=== PATIENT | female | born 1965 | race Caucasian/White ===

== ENCOUNTER → 2017-01-28 | Outpatient (CLI) | payer BC ==
--- NOTE | 2017-01-28 23:24 | MR ---
EXAMINATION TYPE: MR brain wo/w con DATE OF EXAM: 01/28/2017 COMPARISON: NONE HISTORY: HX of Seizures TECHNIQUE: Multiplanar, multisequence images of the brain and brainstem is performed without and with IV contras t, utilizing 10 mL intravenous MultiHance . FINDINGS: The ventricles and sulci appear fairly normal for age. There is no mass effect nor midline shift. The re is no sign of intracranial hemorrhage. There is normal flow void in the anterior middle and warehouse traffic supervisor ior cerebral arteries. Brainstem is intact. Corpus callosum appears normal. Sella turcica appears nor mal. I see no pathologic enhancement. IMPRESSION: Normal MR scan of the brain.
== END | disposition home or self-care (01) ==
LOC: RADMRIMAIN 20:18
PROVIDERS: ATTEND Psychiatry & Neurology Neurology
DX: G40.209 Localization-related (focal) (partial) symptomatic epilepsy and epileptic syndromes with complex partial seizures, not intractable, without status epilepticus (principal)
CPT/HCPCS: 70553; A9577

== ENCOUNTER → 2018-03-16 | Outpatient (CLI) | payer OTHER ==
[2018-03-16 14:28] LABS: Anisocytosis Slight; Basophils % (A) 1 %; Eosinophils # (A) 0.3 k/uL (0-0.7); Eosinophils % (A) 5 %; HCT 36.2 % (34.0-46.0); HGB 10.5 gm/dL (11.4-16.0); Hypochromasia Marked; Lymphocytes # (A) 1.8 k/uL (1.0-4.8); Lymphocytes % (A) 35 %; MCH 23.2 pg (25.0-35.0); MCHC 29.1 g/dL (31.0-37.0); MCV 79.6 fL (80.0-100.0); Mean Platelet Volume 6.1; Microcytosis Slight; Monocytes # (A) 0.3 k/uL (0-1.0); Monocytes % (A) 5 %; Neutrophils # (A) 2.7 k/uL (1.3-7.7); Neutrophils % (A) 52 %; Platelet Count 681 k/uL (150-450); RBC 4.55 m/uL (3.80-5.40); RDW 19.4 % (11.5-15.5); WBC 5.1 k/uL (3.8-10.6)
[2018-03-16 14:41] LABS: Anion Gap 10 mmol/L; Blood Urea Nitrogen 21 mg/dL (7-17); Calcium 9.8 mg/dL (8.4-10.2); Carbon Dioxide 28 mmol/L (22-30); Chloride 104 mmol/L (98-107); Glucose 89 mg/dL (74-99); Potassium 4.3 mmol/L (3.5-5.1); Sodium 142 mmol/L (137-145)
== END | disposition home or self-care (01) ==
LOC: LABWHC1 13:57
PROVIDERS: ATTEND Urology
DX: Z01.812 Encounter for preprocedural laboratory examination (principal); Z79.899 Other long term (current) drug therapy; N20.1 Calculus of ureter
CPT/HCPCS: 36415; 80048; 85025

== ENCOUNTER 2018-03-18 09:37 | Day surgery (SDC) | payer OTHER ==
--- NOTE | 2018-03-15 21:00 | P.GSHP ---
History of Present Illness H&P Date: 03/15/18 Chief Complaint: Left flank pain The patient is a 53-year-old white female recently hospitalized with acute left pyelonephritis, complicated by a 5 mm left distal ureteral calculus. She underwent stent placement, and has been treated with antibiotics. The urine culture showed Klebsiella, and she is currently being treated with Ceftin. She has no prior history of urolithiasis. - Constitutional Constitutional: Reports chills, Reports fever - Gastrointestinal Gastrointestinal: Reports nausea, Reports vomiting - Genitourinary (Female) Genitourinary: Reports dysuria, Reports hematuria, Reports kidney stones Past Medical History Past Medical History: Cancer, Seizure Disorder Additional Past Medical History / Comment(s): Gout, cervical cancer, partial gastrectomy (ever since then has had problems holding food down), hard time swallowing pills likes liquid medication, recently (last week) lost insurance stopped taking dilantin and now taking keppra, anemia, kidney issues (unable to urinate for 3 days), chemo and radiation cervical cancer 2009 History of Any Multi-Drug Resistant Organisms: None Reported Past Surgical History: No Surgical Hx Reported Additional Past Surgical History / Comment(s): removal of large portion of stomach Past Anesthesia/Blood Transfusion Reactions: No Reported Reaction Past Psychological History: No Psychological Hx Reported Smoking Status: Never smoker Past Alcohol Use History: None Reported Past Drug Use History: None Reported - Past Family History Mother Family Medical History: Chest Pain / Angina Medications and Allergies Home Medications Medication Instructions Recorded Confirmed Type Zolpidem [Ambien] 10 mg PO HS PRN 11/05/17 11/05/17 History levETIRAcetam [Keppra] 750 mg PO BID 11/05/17 11/05/17 History Allergies Allergy/AdvReac Type Severity Reaction Status Date / Time metronidazole [From Flagyl] Allergy Rash/Hives Verified 11/05/17 07:58 Surgical - Exam - General well developed, well nourished, no distress - Neck no masses, trachea midline - Respiratory normal respiratory effort - Abdomen Abdomen: soft, tender (Mild left-sided tenderness), no masses, no guarding, no rigid, no rebound, no distended - Psychiatric oriented to time, oriented to person, oriented to place, speech is normal, memory intact Results - Imaging CT scan - abdomen: report reviewed, image reviewed Assessment and Plan (1) Calculus of ureter Status: Acute Code(s): N20.1 - CALCULUS OF URETER SNOMED Code(s): 98558046 Plan: I have discussed the diagnosis of ureteral calculus with the patient in great detail. I explained to the patient that after appropriate antibiotic therapy, ureteroscopic calculus removal can be safely performed. This can be done via stone basketing or laser lithotripsy. I explained the chances of ureteral perforation as well as the possibility that the calculus could not be retrieved. I discussed other risks of ureteroscopy, such as bleeding and infection. I explained the possibility of stent replacement. The patient expressed an understanding of the procedure and risks. Following a lengthy discussion, as a result of shared decision making, the patient has elected to proceed with cystoscopy, left ureteral stent removal, left ureteroscopy with laser lithotripsy and/or stone basketing.
[2018-03-17 09:30] VITALS: BMI 21.3
[~2018-03-18 09:37] MED LIST: DEXAMETHASONE SOD PHOSPHATE 10 MG/ML 1 ML VIAL IV ONE; LACTATED RINGERS 1,000 ML IV SCH; ONDANSETRON 4 MG/2 ML VIAL IVP ONE; ceFAZolin IN SWFI 2 GM/20 ML SYRINGE IVP ONE
--- NOTE | 2018-03-18 10:19 | XR ---
EXAMINATION TYPE: XR KUB DATE OF EXAM: 03/18/2018 HISTORY: Pain Comparison: None.Single KUB is submitted for interpretation. Findings: Right renal calculi: None Visualized. Limited by overlying bowel content. Right ureteral calculi: None Visualized. Left renal calculi: None Visualized. Surgical clips and rings of sutures overlying the left kidney. Left ureteral calculi: Double pigtail left ureteral stent is in place. Pelvic calcifications: None Visualized. Bowel gas pattern is unremarkable. No free air. No mass effects. IMPRESSION: 1. Left-sided ureteral stent is in place. No definite nephrolithiasis appreciated at this time.
[2018-03-18] MEDS ORDERED: LIDOCAINE 1% 20 ML VIAL (10MG/ML) FOR IV START INTRADERMA ONE (10:34)
[2018-03-18] MEDS ORDERED: LIDOCAINE 1% INJ 10MG/ML (20 ML MDV) ONE (11:32)
[2018-03-18] MEDS ORDERED: fentaNYL (PF) 50 MCG/ML 2 ML AMP ONE (11:32)
[2018-03-18] MEDS ORDERED: SUCCINYLCHOLINE CHLORIDE 100 MG/5 ML SYR IV ONE (11:32)
[2018-03-18] MEDS ORDERED: PROPOFOL 10 MG/ML 20 ML VIAL IV ONE (11:32)
[2018-03-18] MEDS ORDERED: ePHEDrine SULFATE/0.9% NACL/PF 50 MG/5 ML SYRINGE IV ONE (11:32)
[2018-03-18] MEDS ORDERED: MIDAZOLAM 2 MG/2 ML VIAL ONE (11:32)
[2018-03-18] MEDS ORDERED: PHENYLEPHRINE-0.9% NACL SYG 1 MG/10 ML SYRINGE ONE (11:32)
--- NOTE | 2018-03-18 12:34 | P.OP ---
Date of Procedure: 03/18/18 Preoperative Diagnosis: Left Ureteral Calculus Postoperative Diagnosis: Same Procedure(s) Performed: cystoscopy, left ureteral stent removal, left ureteroscopy with Holmium laser lithotripsy Anesthesia: BRYAN Surgeon: Bladimir Caba Estimated Blood Loss (ml): 0 IV fluids (ml): 600 Pathology: other (calculus fragments, sent for chemical analysis) Condition: stable Disposition: PACU Indications for Procedure: The patient is a 53-year-old white female recently hospitalized with acute left pyelonephritis, complicated by a 5 mm left distal ureteral calculus. She underwent stent placement, and has been treated with antibiotics. The urine culture showed Klebsiella, and she is currently being treated with Ceftin. She now comes for cystoscopy, left ureteral stent removal, and ureteroscopic removal of the left ureteral calculus. Operative Findings: 5 mm left distal ureteral calculus, impacted. The calculus was fragmented and removed in its entirety. Description of Procedure: The patient was taken to the operating room and placed in the dorsolithotomy position, with legs supported in Lance stirrups. The external genitalia was prepped and draped sterilely. The 30 lens was used to introduce the 22-[place] Stortz cystoscopic sheath through the urethra and into the bladder under direct vision. grasping forceps were used to grasp the distal end of the left ureteral stent, which was removed along with the cystoscope. The [facility] semirigid ureteroscope was advanced into the bladder, and the left ureteral orifice was cannulated. The ureteroscope was slowly advanced under direct vision up to the level of the calculus. The 200 Holmium laser probe was passed through the ureteroscope, and lithotripsy was performed. The calculus was fragmented to completion. The ureter was then inspected. Edema was noted with the calculus had been impacted. There was no evidence of ureteral perforation. Virtually all of the calculus fragments passed distally into the bladder. The ureteroscope was removed, and the cystoscope was replaced into the bladder. The calculus fragments were removed from the bladder , and sent for chemical analysis. The cystoscope was removed and the procedure was terminated. The patient tolerated the procedure well was taken to the recovery room in stable condition.
[2018-03-18 12:41] VITALS: TEMP 97.6
[2018-03-18] MEDS ORDERED: ONDANSETRON 4 MG/2 ML VIAL IVP ONE ×2 (12:41→14:20)
[2018-03-18] MEDS: HYDROmorphone 0.5 MG/0.5 ML SYRINGE IVP PRN ×4 (13:00→13:57)
[2018-03-18] MEDS ORDERED: LACTATED RINGERS 1,000 ML IV ONE ×2 (13:00)
[2018-03-18] MEDS ORDERED: MEPERIDINE 50 MG/ML SYRINGE IVP ONE (13:20)
[2018-03-18 14:20] VITALS: RESP 18
[2018-03-18 14:36] VITALS: BP 111/66; PULSE 85
[2018-03-18] MEDS ORDERED: HYDROcodone/APAP 10-325MG 1 EACH TAB PO ONE ×2 (14:39→14:40)
== END 2018-03-18 15:01 | disposition home or self-care (01) ==
LOC: OR 09:37
PROVIDERS: ATTEND Urology
DX: N20.1 Calculus of ureter (principal); B96.1 Klebsiella pneumoniae [K. pneumoniae] as the cause of diseases classified elsewhere; G40.909 Epilepsy, unspecified, not intractable, without status epilepticus; M10.9 Gout, unspecified; Z79.899 Other long term (current) drug therapy; Z79.891 Long term (current) use of opiate analgesic; Z88.1 Allergy status to other antibiotic agents; Z98.84 Bariatric surgery status; Z90.3 Acquired absence of stomach [part of]; Z90.710 Acquired absence of both cervix and uterus; Z85.41 Personal history of malignant neoplasm of cervix uteri; Z92.21 Personal history of antineoplastic chemotherapy; Z92.3 Personal history of irradiation
CPT/HCPCS: 82365; 74018; 52353; J2250; J1100; J2175; J2405; J2001; J3010; J2370; J0330; J2704; J1170; J0690